=== PATIENT | male | born 1975 | race Caucasian/White ===

== ENCOUNTER 2024-11-18 09:18 | Emergency (ER) | payer OTHER, SELFPAY ==
[2024-11-18 09:21] VITALS: BP 204/129
--- NOTE | 2024-11-18 10:40 | ED.GENMED ---
History of Present Illness
General
Chief Complaint: Skin Problem
Source: patient
Exam Limitations: none
Time Seen by Provider: 11/18/24 10:21
History of Present Illness
History of Present Illness:
49yoM with no significant past medical history presenting for a rash x 5 days. Rash initially started in his upper abdomen and is now diffuse. Rash is red, raised, and extremely itchy to the point where he is unable to sleep at night. He has been
taking Benadryl without much relief. He had an appointment with dermatology scheduled for this morning but he started to feel some tingling and pressure in his head and around his ears so came to the ED instead. He is otherwise asymptomatic and
denies any fevers, headache, photophobia, vomiting, neck stiffness. No new products, recent travel, or exposure to similar rash he is not on any prescription medications. No involvement of genitals, oral mucosa, or palms/soles.
Past History
Past History
ED Past Medical History: None
ED Past Surgical History: Negative Cardiac
Social History
Tobacco: Non-smoker
Alcohol: None
Drug: None
Personal:
Living: with family
Employment: Employed
Family History
Family History: Other ( with Covid)
Phy Exam
General Physical Exam
General Presentation: well appearing and no apparent distress
General Skin: warm and dry
General Habitus: normal
General Mental: alert
ENT Exam
ENT Exam: pharynx normal, neck supple and normocephalic
Neurological Exam
Neurological Exam: alert
[place] Coma Scale
Eye Opening: Spontaneous
Verbal Response: Oriented
Motor Response: Obeys Commands
GCS Total Score: 15
Skin Exam
Skin Exam: warm/dry and other (Diffuse erythematous maculopapular rash. Blanches. +Itchy. No involvement of oral mucosa or palms.)
Psychiatric Exam
Psychiatric Exam: normal mood/affect
Course
Orders/Labs/Results
Orders:
Orders
11/18/24 10:42
Prednisone [Deltasone] 60 mg PO NOW STA
Vital Signs
Initial and Last Documented VS:
Initial Vital Signs
Temp Pulse Resp BP Pulse Ox
97.6 F 100 16 204/129 97
11/18/24 09:21 11/18/24 09:21 11/18/24 09:21 11/18/24 09:21 11/18/24 09:21
Last Documented Vital Signs
Temp Pulse Resp BP Pulse Ox
97.6 F 100 16 150/100 97
11/18/24 09:21 11/18/24 09:21 11/18/24 09:21 11/18/24 10:43 11/18/24 09:21
MDM/Problems Addressed
Differential Diagnosis Includes:
49yoM here with a red itchy rash x 5 days. No new products/recent travel. Not on any prescription meds. BP 204/129 in triage. Repeat 150/100. There is a diffuse erythematous maculopapular rash on exam which appears consistent with a dermatitis. No
involvement of mucosal membranes or palms/soles. No skin sloughing. Will start patient on a prednisone taper. He was also advised to start Zyrtec daily. Advised f/u with PCP and dermatology. ED return precautions reviewed. Patient discharged in
stable condition.
*Critical Care Note
Total Time (30-74mins, 75-104mins- exclusive of procedures): Not Applicable
ED Attending Note
-
Portions of this chart may have been created with voice recognition software.� Occasional wrong word or��sound alike� substitutions may have occurred due to the inherent limitations of voice recognition software.
Discharge Plan
Departure
Patient Disposition: Home (Routine Discharge)
Date of Disposition: 11/18/24
Time of Disposition: 10:42
Patient with high blood pressure during this ER visit?: Yes
Discharge Problem:
Rash and other nonspecific skin eruption
Instructions: Skin Rash (DC)
Prescriptions:
New
prednisone 10 mg tablet
10 mg PO DIRECTED Qty: 42 0RF
Rx Instructions:
Take 60mg PO daily x 2 days followed by 50mg x 2 days, 40mg x 2 days, 30mg x 2 days, 20mg x 2 days, 10mg x 2 days
No Action
cholecalciferol (vitamin D3) 1,000 UNITS tablet
1,000 units PO DAILY
famotidine 20 MG tablet
20 mg PO BID 7 Days Qty: 14 0RF
dexamethasone 2 MG tablet
2 mg PO DAILY 5 Days Qty: 15 0RF
Rx Instructions:
next dose 08/27/20
rivaroxaban [Xarelto] 10 MG tablet
10 mg PO DAILY 30 Days Qty: 30 0RF
oxycodone-acetaminophen 5 MG/325 MG tablet
1 tab PO Q4HPRN PRN (Reason: pain) Qty: 10 0RF
Referrals:
Kiara Orellana PA-C [Family Provider]
Activity Restrictions/Additional Instructions:
Start taking Zyrtec daily. Take prednisone as prescribed, next dose is tomorrow.
Please follow-up with your family doctor and dermatology next week. Return to the ER with any new or worsening symptoms.
Interventions
Interventions:
*Risk Screen - Suicide Last Done: 11/18/24 09:25
*General Assessment Last Done: 11/18/24 10:59
*Neglect/Abuse Screening Last Done: 11/18/24 09:25
*ED- Fall Risk Assessment Last Done: 11/18/24 10:59
*ED COVID-19 Vaccine History Last Done: 11/18/24 10:59
*Nursing Disposition Last Done: 11/18/24 10:59
ED-Skin Assessment Last Done: 11/18/24 10:45
Discharge Date and Time
Discharge Date/Time: 11/18/24 11:00
Print Language: SLOVAK
[2024-11-18 10:43] VITALS: BP 150/100
[2024-11-18] MEDS: DELTASONE 60 MG PO (10:56)
== END 2024-11-18 11:00 | disposition home or self-care (01) ==
LOC: EMR 09:18
PROVIDERS: EMERGENCY PHYSICIAN Emergency Medicine; FAMILY PHYSICIAN Physician Assistant Medical
DX: R21 Rash and other nonspecific skin eruption (principal)
CPT/HCPCS: 99283